=== PATIENT | female | born 1950 | race Caucasian/White ===

== ENCOUNTER 2019-05-22 17:16 | Observation (INO) | payer MEDICARE ==
[~2019-05-22] VITALS: Ht 157.5 cm; Wt 54.8 kg
[2019-05-22 18:13] LABS: BASOPHILS ABSOLUTE AUTO 0.07 K/mm3 (0.00-0.23); BASOPHILS PERCENT AUTO 1 % (0-2); EOSINOPHILS ABSOLUTE AUTO 0.13 K/mm3 (0.00-0.68); EOSINOPHILS PERCENT AUTO 2 % (0-6); Hematocrit 45.2 % (33.0-51.0); Hemoglobin 14.8 g/dL (11.5-16.0); IMMATURE GRAN ABSOLUTE AUTO 0.03 K/mm3 (0.00-0.10); IMMATURE GRAN PERCENT AUTO 0 % (0-1); LYMPHOCYTES ABSOLUTE AUTO 3.65 K/mm3 (0.84-5.20); LYMPHOCYTES PERCENT AUTO 44 % (21-46); MONOCYTES ABSOLUTE AUTO 0.66 K/mm3 (0.16-1.47); MONOCYTES PERCENT AUTO 8 % (4-13); Mean Corpuscular HGB 29.3 pg (26.0-34.0); Mean Corpuscular HGB Conc 32.7 g/dL (31.5-36.5); Mean Corpuscular Volume 90 fL (80-100); Mean Platelet Volume 12.9 fL (9.1-12.4); NEUTROPHILS ABSOLUTE AUTO 3.71 K/mm3 (1.96-9.15); NEUTROPHILS PERCENT AUTO 45 % (41-73); Platelet Count 257 K/mm3 (150-400); RDW Coefficient Variation 14.3 % (11.7-14.2); RDW Standard Deviation 46.1 fL (35.1-46.3); Red Blood Cell Count 5.05 M/mm3 (3.80-5.20); White Blood Cell Count 8.25 K/mm3 (4.00-11.30)
[2019-05-22 19:01] LABS: International Normalized Ratio 0.96; Prothrombin Time Results 10.3 Sec (9.7-11.5)
[2019-05-22 19:13] LABS: Alanine Aminotransfer (ALT/SGP 17 U/L (12-78); Albumin, Blood 3.3 g/dL (3.4-5.0); Albumin/Globulin Ratio 0.9 (0.8-1.8); Alk Phos 115 U/L (50-136); Anion Gap 5 mmol/L (6-16); Aspartate Aminotrans (AST/SGOT 13 U/L (12-37); Bilirubin, Total 0.3 mg/dL (0.1-1.0); Blood Urea Nitrogen 16 mg/dL (8-24); Bun/Creatinine Ratio 16.9 (12.0-20.0); CO2, Blood 24 mmol/L (21-32); Calcium, Blood 8.6 mg/dL (8.5-10.1); Chloride, Blood 112 mmol/L (98-108); Creatinine, Blood 0.95 mg/dL (0.40-1.00); Globulin, Blood 3.6 g/dL (2.2-4.0); Glomerular Filtration Rate >60 (60-); Glucose, Blood 86 mg/dL (70-99); Sodium, Blood 141 mmol/L (136-145); Total Protein, Blood 6.9 g/dL (6.4-8.2)
--- NOTE | 2019-05-22 22:47 | NUR ---
BEGINNING SHIFT SUMMARY ASSUMED CARE OF PT AT 2137, PT IS A/O X4 AND IS A GOOD HISTORIAN. PT STATED THAT SHE CAME FROM [place] AFTER SEEING HER SISTER, SHE DIDNT WANT TO STAY IN THE HOSPITAL THERE BECAUSE IT WAS DIRY, PT PLANS TO LEAVE BACK TO [place] WHERE SHE LIVES NOW WITH HER OTHER SISTER. HEART SOUNDS REGULAR, FINE CRACKLES AT THE BASES OF LUNGS. PT DENIES SOB/DYSPNEA/CP AT THIS TIME. PT HAS L SIDED WEAKNESS IN HER LEGS AND NUMBNESS IN HER L THUMB AND POINTER FINGER. PT IS CURRENTLY SLEEPING, CALL LIGHT IN REACH, BED IN LOWEST POSTION, WILL CONTINUE TO MONITOR.
--- NOTE | 2019-05-23 04:32 | NUR ---
CALL TO HOSPITALIST PT STATED THAT SHE IS HAVING A MIGRANE HEADACHE. AFTER ADMINISTERING [employer] AND REPOSTIONING PT, PT CONTINUED TO BE IN PAIN, HOSPITALIST CALLED AND PERSCRIBED MEDICATION. PT IS CURRENTLY TRYING TO GO BACK TO SLEEP, CALL LIGHT IN REACH, BED IN LOWEST POSTION, WILL CONTINUE TO MONITOR.
--- NOTE | 2019-05-23 04:54 | NUR ---
END SHIFT SUMMARY PT SLEPT T/O THE NIGHT. NO CARDIAC EVENTS. PT WALKS TO THE BATHROOM WITH SBA. CALL LIGHT IN REACH, BED IN LOWEST POSITION, WILL CONTINUE TO MONITOR UNTIL DAYSHIFT NURSE ARRIVES.
[2019-05-23 05:36] LABS: Anion Gap 6 mmol/L (6-16); Blood Urea Nitrogen 14 mg/dL (8-24); Bun/Creatinine Ratio 17.6 (12.0-20.0); CO2, Blood 24 mmol/L (21-32); Calcium, Blood 8.7 mg/dL (8.5-10.1); Chloride, Blood 114 mmol/L (98-108); Cholesterol 259 mg/dL (50-200); Glomerular Filtration Rate >60 (60-); Glucose, Blood 79 mg/dL (70-99); Potassium, Blood 3.9 mmol/L (3.5-5.5); Sodium, Blood 144 mmol/L (136-145); Triglycerides 83 mg/dL (30-160); Very Low Density Lipoprot Chol 16 mg/dL (6-32)
[2019-05-23 05:37] LABS: CHOL/HDL RATIO 4.2; HDL Cholesterol 61 mg/dL (>39); Low Density Lipoprotein Chol 181 mg/dL (0-110)
--- NOTE | 2019-05-23 14:07 | NUR ---
AMA: PATIENT REQUESTING TO BE RELEASED, STATES SHE IS TIRED OF WAITING, FEELS BETTER, IS WALKING BETTER AND WANTS TO GO HOME. DR. AARON INFORMED AND AWARE. AMA PAPERS GIVEN TO PATIENT AND PATIENT SIGNED WITHOUT PROBLEM. ENCOURAGED PATIENT TO FOLLOW UP WITH PCP KHALIF. SPOUSE AT SIDE.
--- NOTE | 2019-05-23 14:34 | NUR ---
PT LEFT AMA. UPON HER RETURN FROM IMAGING SHE ASKED IF SHE WAS OK TO LEAVE. I LET THE PT KNOW THAT THE DR WAS WAITING FOR THE RESULTS OF THE MRI. AT 1400 PT SAID SHE WANTED TO LEAVE. IV AND TELEMETRY WAS REMOVED BY AIMEE CHEN AND PT SIGNED AMA FORM.
== END 2019-05-23 14:10 | disposition left against medical advice (07) ==
LOC: ER 17:16 → MEDS 17:17 → ER 19:41 → MEDS 19:41
PROVIDERS: Nurse Practitioner Acute Care; Physician Assistant; ADMIT Hospitalist
DX: I63.9 Cerebral infarction, unspecified (principal); G81.94 Hemiplegia, unspecified affecting left nondominant side; R47.89 Other speech disturbances; I10 Essential (primary) hypertension; F17.210 Nicotine dependence, cigarettes, uncomplicated; I73.9 Peripheral vascular disease, unspecified; Z66 Do not resuscitate; Z85.841 Personal history of malignant neoplasm of brain; Z85.41 Personal history of malignant neoplasm of cervix uteri; Z90.13 Acquired absence of bilateral breasts and nipples; Z90.710 Acquired absence of both cervix and uterus; Z86.73 Personal history of transient ischemic attack (TIA), and cerebral infarction without residual deficits; Z53.29 Procedure and treatment not carried out because of patient's decision for other reasons; Z88.1 Allergy status to other antibiotic agents
CPT/HCPCS: 36415; 70450; 70551; 80048; 80053; 80061; 82947; 85025; 85610; 92610; 93005; 93010; 93306; 93880; 96372; 97110; 97112; 97162; 97165; 97535; 99285-25; G0378; J1650; J7030

== ENCOUNTER → 2019-05-26 | Outpatient (CLI) | payer MEDICARE ==
[2019-05-26 10:16] LABS: BASOPHILS ABSOLUTE AUTO 0.06 K/mm3 (0.00-0.23); BASOPHILS PERCENT AUTO 1 % (0-2); EOSINOPHILS ABSOLUTE AUTO 0.12 K/mm3 (0.00-0.68); EOSINOPHILS PERCENT AUTO 2 % (0-6); Hematocrit 45.5 % (33.0-51.0); Hemoglobin 15.1 g/dL (11.5-16.0); IMMATURE GRAN ABSOLUTE AUTO 0.01 K/mm3 (0.00-0.10); IMMATURE GRAN PERCENT AUTO 0 % (0-1); LYMPHOCYTES PERCENT AUTO 39 % (21-46); MONOCYTES ABSOLUTE AUTO 0.66 K/mm3 (0.16-1.47); MONOCYTES PERCENT AUTO 10 % (4-13); Mean Corpuscular HGB 29.3 pg (26.0-34.0); Mean Corpuscular HGB Conc 33.2 g/dL (31.5-36.5); Mean Corpuscular Volume 88 fL (80-100); Mean Platelet Volume 12.3 fL (9.1-12.4); NEUTROPHILS ABSOLUTE AUTO 3.29 K/mm3 (1.96-9.15); NEUTROPHILS PERCENT AUTO 49 % (41-73); Platelet Count 235 K/mm3 (150-400); Red Blood Cell Count 5.15 M/mm3 (3.80-5.20); White Blood Cell Count 6.74 K/mm3 (4.00-11.30)
[2019-05-26 11:35] LABS: Alanine Aminotransfer (ALT/SGP 15 U/L (12-78); Albumin/Globulin Ratio 1.2 (0.8-1.8); Alk Phos 137 U/L (40-126); Anion Gap 9 mmol/L (6-16); Aspartate Aminotrans (AST/SGOT 19 U/L (12-37); Bilirubin, Total 0.4 mg/dL (0.1-1.0); Blood Urea Nitrogen 16 mg/dL (8-24); Bun/Creatinine Ratio 17.6 (12.0-20.0); CO2, Blood 27 mmol/L (21-32); Calcium, Blood 9.4 mg/dL (8.5-10.1); Chloride, Blood 106 mmol/L (98-108); Creatinine, Blood 0.91 mg/dL (0.40-1.00); Globulin, Blood 3.3 g/dL (2.2-4.0); Glomerular Filtration Rate >60 (60-); Glucose, Blood 67 mg/dL (70-99); Potassium, Blood 4.6 mmol/L (3.5-5.5); Sodium, Blood 142 mmol/L (136-145); Total Protein, Blood 7.3 g/dL (6.4-8.2)
== END | disposition home or self-care (01) ==
LOC: LAB SHORT 10:10 → LAB EV 10:10
PROVIDERS: Physician Assistant Medical
DX: I63.9 Cerebral infarction, unspecified (principal)
CPT/HCPCS: 80053; 85025